=== PATIENT | female | born 1980 | race Caucasian/White ===

== ENCOUNTER 2022-05-25 08:44 | Day surgery (SDC) | payer MEDICAID, OTHER ==
[2022-05-24 09:12] LABS: BASOPHILS % (AUTO) 0.5 % (0.0-2.0); EOSINOPHILS # (AUTO) 0.1 K/uL (0-0.4); EOSINOPHILS % (AUTO) 1.2 % (0.0-4.0); HEMATOCRIT 43.2 % (36-48); HEMOGLOBIN 14.6 g/dL (12.0-16.0); LYMPHOCYTES # (AUTO) 2.2 K/uL (2.5-16.5); MEAN CORPUSCULAR HEMOGLOBIN 31 pg (27-31); MEAN CORPUSCULAR HGB CONC 34 g/dL (33-37); MEAN CORPUSCULAR VOLUME 92.6 fL (80-94); MONOCYTES # (AUTO) 0.5 K/uL (0.8-1.0); MONOCYTES % (AUTO) 6.9 % (1.7-9.3); NEUTROPHILS # (AUTO) 4.3 K/uL (1.8-7.7); NEUTROPHILS % (AUTO) 60.4 % (42.2-75.2); PLATELET COUNT (AUTO) 226 K/uL (140-450); RED BLOOD CELL COUNT(AUTO) 4.66 MIL/uL (4.20-5.40); RED CELL DISTRIBUTION WIDTH 12.6 % (11.6-13.7); WHITE BLOOD COUNT (AUTO) 7.1 K/uL (4.8-10.8)
[2022-05-24 09:22] LABS: ALBUMIN 3.4 g/dL (3.4-5.0); ANION GAP 15.2 (8-16); CARBON DIOXIDE 27.4 mmol/L (21-32); CREATININE 0.7 mg/dL (0.6-1.3); POTASSIUM 3.6 mmol/L (3.5-5.1); TOTAL BILIRUBIN 0.8 mg/dL (0.0-1.0)
[~2022-05-25] VITALS: Ht 165.1 cm; Wt 88.5 kg
[2022-05-25] MEDS ORDERED: SEVOFLURANE 250 ML BTL INH ONE (10:50)
[2022-05-25] MEDS ORDERED: HYDROmorphone 1 MG/ML AMP IVP PRN (10:55)
[2022-05-25] MEDS ORDERED: NACL 0.9% 1,000 ML IV SCH (10:55)
[2022-05-25] MEDS ORDERED: BLOOD GLUCOSE MONITORING 1 DEV DEV FS ONE (10:55)
[2022-05-25] MEDS ORDERED: MEPERIDINE 25 MG/ML SYR IVP PRN (10:55)
[2022-05-25] MEDS ORDERED: BUPIVACAINE-MPF 0.5% 30 ML VIAL INJ ONE (10:55)
[2022-05-25] MEDS ORDERED: ONDANSETRON 4 MG/2 ML VIAL IVP PRN (10:55)
[2022-05-25] MEDS ORDERED: diphenhydrAMINE 50 MG/ML VIAL IVP PRN (10:55)
[2022-05-25] MEDS ORDERED: SUCCINYLCHOLINE CHLORIDE 200 MG/10 ML VIAL IVP ONE (10:56)
[2022-05-25] MEDS ORDERED: fentaNYL citrate 0.05 MG/ML VIAL ONE (10:56)
[2022-05-25] MEDS ORDERED: PROPOFOL 200 MG/20 ML VIAL IV ONE (10:56)
[2022-05-25] MEDS ORDERED: ROCURONIUM 50 MG/5 ML VIAL IV ONE (11:09)
[2022-05-25] MEDS ORDERED: ONDANSETRON 4 MG/2 ML VIAL ONE (11:10)
[2022-05-25] MEDS ORDERED: DEXAMETHASONE 4 MG/ML VIAL ONE (11:10)
[2022-05-25] MEDS ORDERED: hydrALAZINE 20 MG/ML VIAL ONE (11:28)
[2022-05-25] MEDS ORDERED: SUGAMMADEX SODIUM 200 MG/2 ML VIAL IV ONE (11:30)
== END 2022-05-25 14:30 | disposition home or self-care (01) ==
LOC: MDS 08:44 → MMU 08:44 → MDS 14:30
PROVIDERS: ATTEND Obstetrics & Gynecology
DX: Z30.2 Encounter for sterilization (principal); E11.9 Type 2 diabetes mellitus without complications; E78.5 Hyperlipidemia, unspecified; Z79.84 Long term (current) use of oral hypoglycemic drugs; Z20.822 Contact with and (suspected) exposure to COVID-19; Z79.01 Long term (current) use of anticoagulants; Z79.899 Other long term (current) drug therapy
CPT/HCPCS: 36415; 58670; 80053; 81025; 82374; 84702; 85025; 87426; 93005; J0330; J0360; J1100; J2175; J2405; J2704; J3010; J3490; J7120

== ENCOUNTER 2022-12-31 09:43 | Emergency (ER) | payer MEDICAID ==
[~2022-12-31] VITALS: Ht 165.1 cm; Wt 87.5 kg
[2022-12-31 09:44] VITALS: BP 159/110
[2022-12-31 10:29] LABS: APPEARANCE,URINE CLEAR (CLEAR); BILIRUBIN,URINE NEGATIVE (NEGATIVE); BLOOD, URINE 2+ (NEGATIVE); COLOR,URINE YELLOW (YELLOW); LEUKOCYTE ESTERASE ,URINE 2+ (NEGATIVE); NITRITE, URINE NEGATIVE (NEGATIVE); UGLUCOSE NEGATIVE (NEGATIVE)
[2022-12-31 10:47] LABS: RBC,URINE 0-5 /HPF (0-5)
[2022-12-31] MEDS ORDERED: CEPH-588 PO (12:18)
--- NOTE | 2022-12-31 12:21 | NUR ---
DISCHARGED BY MEGAN ARREDONDO. Patient discharged with v/s stable. Written and verbal after care instructions given. Patient alert, oriented and verbalized understanding of instructions. Ambulatory with steady gait. All questions addressed prior to discharge. ID band removed. Patient advised to follow up with PMD. Rx of KEFLEX given. Opportunity to ask questions provided and answered.
== END 2022-12-31 12:21 | disposition home or self-care (01) ==
LOC: MED 09:43
DX: N12 Tubulo-interstitial nephritis, not specified as acute or chronic (principal); E11.9 Type 2 diabetes mellitus without complications; E78.5 Hyperlipidemia, unspecified; Z79.899 Other long term (current) drug therapy; Z98.890 Other specified postprocedural states
CPT/HCPCS: 81001; 81025; 87086; 99283

== ENCOUNTER 2023-03-16 11:17 | Emergency (ER) | payer MEDICAID ==
[~2023-03-16] VITALS: Ht 162.6 cm; Wt 83.5 kg
[~2023-03-16 11:17] MED LIST: CEPH-588 PO
[2023-03-16 12:54] VITALS: BP 141/89; PULSE 79; RESP 18; TEMP 97.5; O2SAT 100
[2023-03-16 14:01] LABS: BASOPHILS % (AUTO) 0.3 % (0.0-2.0); EOSINOPHILS # (AUTO) 0.1 K/uL (0-0.4); EOSINOPHILS % (AUTO) 0.7 % (0.0-4.0); HEMATOCRIT 41.7 % (36-48); HEMOGLOBIN 14.2 g/dL (12.0-16.0); LYMPHOCYTES # (AUTO) 3.1 K/uL (2.5-16.5); LYMPHOCYTES % (AUTO) 33.6 % (20.5-51.1); MEAN CORPUSCULAR HEMOGLOBIN 31 pg (27-31); MEAN CORPUSCULAR HGB CONC 34 g/dL (33-37); MEAN CORPUSCULAR VOLUME 91.9 fL (80-94); MONOCYTES # (AUTO) 0.6 K/uL (0.8-1.0); MONOCYTES % (AUTO) 6.9 % (1.7-9.3); NEUTROPHILS # (AUTO) 5.4 K/uL (1.8-7.7); NEUTROPHILS % (AUTO) 58.5 % (42.2-75.2); PLATELET COUNT (AUTO) 222 K/uL (140-450); RED BLOOD CELL COUNT(AUTO) 4.54 MIL/uL (4.20-5.40); RED CELL DISTRIBUTION WIDTH 12.6 % (11.6-13.7); WHITE BLOOD COUNT (AUTO) 9.2 K/uL (4.8-10.8)
[2023-03-16 14:19] LABS: ALBUMIN 3.8 g/dL (3.4-5.0); ANION GAP 12.7 (8-16); CALCIUM 8.6 mg/dL (8.5-10.1); CARBON DIOXIDE 26.2 mmol/L (21-32); CREATININE 0.6 mg/dL (0.6-1.3); POTASSIUM 3.9 mmol/L (3.5-5.1); TOTAL BILIRUBIN 0.8 mg/dL (0.0-1.0); TOTAL PROTEIN, SERUM 7.6 g/dL (6.4-8.2)
[2023-03-16] MEDS ORDERED: HYDROcodone/APAP 5/325 MG 1 TAB TAB PO ONE (14:55)
[2023-03-16] MEDS ORDERED: ONDANSETRON 4 MG ODT PO ONE (15:00)
[2023-03-16 17:18] LABS: APPEARANCE,URINE SLIGHTLY HAZY (CLEAR); COLOR,URINE YELLOW (YELLOW); PROTEIN,URINE NEGATIVE (NEGATIVE); UGLUCOSE NEGATIVE (NEGATIVE)
[2023-03-16 17:19] LABS: BILIRUBIN,URINE 1+ (NEGATIVE); BLOOD, URINE TRACE (NEGATIVE); LEUKOCYTE ESTERASE ,URINE TRACE (NEGATIVE); NITRITE, URINE NEGATIVE (NEGATIVE); UROBILINOGEN,URINE 0.2 EU/dL (0.2 - 1)
[2023-03-16 17:33] LABS: ICTOTEST NEGATIVE (NEGATIVE); RBC,URINE 0-5 /HPF (0-5); WBC,URINE 0-5 /HPF (0-5)
[2023-03-16 17:34] LABS: BACTERIA,URINE FEW /HPF (None Seen); MUCUS,URINE 2+ /LPF (None Seen); SQUAMOUS EPITHELIAL CELL,UR 4-10 (MOD) /LPF (0-3 (FEW)); TRICHOMONAS,URINE None Seen /HPF (None Seen); YEAST,URINE None Seen /HPF (None Seen)
[2023-03-16] MEDS ORDERED: ONDA-188 PO (18:54)
[2023-03-16] MEDS ORDERED: ACET-8905 PO (18:54)
[2023-03-16] MEDS ORDERED: SUCR1SUS7 PO (18:54)
[2023-03-16] MEDS ORDERED: OMEP20EC11 PO (18:54)
[2023-03-16 19:10] VITALS: BP 141/89; PULSE 79; RESP 18; TEMP 97.5; O2SAT 100
== END 2023-03-16 19:10 | disposition home or self-care (01) ==
LOC: MED 11:17
DX: R10.9 Unspecified abdominal pain (principal); G89.29 Other chronic pain; R11.2 Nausea with vomiting, unspecified; E11.9 Type 2 diabetes mellitus without complications; I10 Essential (primary) hypertension; E78.5 Hyperlipidemia, unspecified; Z79.899 Other long term (current) drug therapy
CPT/HCPCS: 36415; 74176; 76705; 80053; 81001; 81025; 83690; 84703; 85025; 99284; Q0162